=== PATIENT | female | born 1955 | race Caucasian/White ===

== ENCOUNTER 2019-07-14 08:28 | Emergency (ER) | payer OTHER ==
[~2019-07-14] VITALS: Ht 154.9 cm; Wt 79.1 kg
[2019-07-14 08:30] VITALS: BP 130/57
[2019-07-14] MEDS ORDERED: ALBUTEROL/IPRATROPIUM 2.5MG/0.5MG, 3 ML NPPB SCH (09:00)
[2019-07-14] MEDS ORDERED: ALBUTEROL/IPRATROPIUM 2.5MG/0.5MG, 3 ML ONE (09:07)
--- NOTE | 2019-07-14 09:23 | NUR ---
PATIENT MEDICATED PER EMAR. RESTING ON GURNEY WITH CALL LIGHT IN REACH. DENIES FURTHER NEEDS AT THIS TIME.
[2019-07-14 09:37] LABS: RAPID INFLUENZA A Negative (Negative); RAPID INFLUENZA B Negative (Negative)
--- NOTE | 2019-07-14 10:22 | NUR ---
CARE FOR DC ONLY PROVIDED. PT WITH OCC COUGH, NO ACUTE DISTRESS NOTED. NO IV TO DC. REVIEWED DC INSTRUCTIONS WITH PT FAMILY. UNDERSTANDING VERBALIZED. PT LEFT AMB, GAIT STEADY.
== END 2019-07-14 10:25 | disposition home or self-care (01) ==
LOC: ED 08:57
DX: J45.31 Mild persistent asthma with (acute) exacerbation (principal); J06.9 Acute upper respiratory infection, unspecified
CPT/HCPCS: 71045; 87400; 93005; 94640; 99284; J7512; J7620